=== PATIENT | female | born 1975 | race Hispanic/Latino ===

== ENCOUNTER 2018-07-30 15:04 | Emergency (ER) | payer SELFPAY ==
[2018-07-30 15:18] VITALS: BP 125/89
[2018-07-30 18:15] LABS: Basophils % (Auto) 0.5 % (0.0-1.8); Eosinophils % (Auto) 0.6 % (0.0-4.3); Hematocrit 46.9 % (30.3-42.9); Hemoglobin 15.7 gm/dl (10.1-14.3); Lymphocytes # (Auto) 1.7 K/mm3 (1.2-5.4); Lymphocytes % (Auto) 20.5 % (13.4-35.0); Mean Corpuscular HGB Conc 33 % (30-34); Mean Corpuscular Volume 97 fl (79-97); Monocytes # (Auto) 0.6 K/mm3 (0.0-0.8); Monocytes % (Auto) 7.8 % (0.0-7.3); Platelet Count 252 K/mm3 (140-440); Red Blood Count 4.83 M/mm3 (3.65-5.03); Red Cell Distribution Width 13.7 % (13.2-15.2)
[2018-07-30 18:34] LABS: Alanine Aminotransferase 140 units/L (7-56); Albumin 4.4 g/dL (3.9-5); BUN/Creatinine Ratio 10; Blood Urea Nitrogen 6 mg/dL (7-17); Calcium 9.3 mg/dL (8.4-10.2); Hemolysis Index 2
[2018-07-30 19:33] LABS: HCG Qualitative,Urine Negative (Negative)
[2018-07-30 19:36] LABS: Color,Urine Yellow (Yellow)
[2018-07-30 19:37] LABS: Bacteria,Urine 1+ /HPF (Negative); Bilirubin,Urine NEG (Negative); Blood,Urine NEG (Negative); Protein,Urine <15 mg/dL mg/dL (Negative); Urobilinogen,Urine < 2.0 mg/dL (<2.0)
[2018-07-30] MEDS ORDERED: ULTRAM PO ONE (21:13)
[2018-07-30] MEDS ORDERED: ULTRAM ONE (21:14)
--- NOTE | 2018-07-30 21:45 | XRay Report ---
FINAL REPORT PROCEDURE: XR CHEST ROUTINE 2V TECHNIQUE: PA and lateral chest radiographs were obtained. CPT 23527 HISTORY: chest pain COMPARISON: No prior studies are available for comparison. FINDINGS: Heart: Normal. Mediastinum/Vessels: Normal. Lungs/Pleural space: Normal. Bony thorax: No acute osseous abnormality. Other: IMPRESSION: Normal examination.
[2018-07-30] MEDS ORDERED: ZOFRAN ODT PO STA (22:44)
--- NOTE | 2018-07-31 00:08 | Ultrasound Report ---
FINAL REPORT PROCEDURE: US ABDOMEN LIMITED TECHNIQUE: Real-time sonography in multiple planes of the gallbladder fossa and CBD with imaging of the adjacent liver, pancreas, and right kidney was performed with image documentation. CPT 03052 HISTORY: ruq pain COMPARISON: No prior studies are available for comparison. FINDINGS: Liver: Normal size and echotexture with no evidence of cystic or solid mass lesion. Gallbladder: There are gallstones. There is no gallbladder wall thickening or pericholecystic fluid. Intrahepatic bile ducts: Normal . Extrahepatic bile ducts: Common bile duct is dilated at 11 millimeters.. Pancreas: Normal as visualized with suboptimal depiction of the pancreatic tail. Right kidney: Normal echotexture. No focal renal mass, calculus, or hydronephrosis. Other: There is a mass inferior to the left lobe of the liver measuring 5.8 x 4.8 x 8.4 centimeters. Malignancy cannot be excluded. Correlation with CT suggested.. IMPRESSION: There is cholelithiasis without evidence of cholecystitis. The common bile duct is dilated. There is a mass inferior to the left lobe of the liver measuring 5.8 x 4.8 x 8.4 centimeters. Maligna ncy cannot be excluded. Correlation with CT suggested.
--- NOTE | 2018-07-31 01:33 | Emergency Department Report ---
ED Abdominal Pain HPI - General Chief Complaint: Chest Pain Stated Complaint: CHEST PAIN/LFT ARM TINGLE Time Seen by Provider: 07/30/18 17:54 Source: patient Mode of arrival: Ambulatory Limitations: No Limitations - History of Present Illness MD Complaint: abdominal pain - Related Data Previous Rx's Medication Instructions Recorded Last Taken Type Dicyclomine [Bentyl] 20 mg PO QID #20 tablet 07/31/18 Unknown Rx Ketorolac [Toradol] 10 mg PO Q6H PRN #15 tablet 07/31/18 Unknown Rx Ondansetron [Zofran ODT TAB] 8 mg PO Q12HR #14 tab.rapdis 07/31/18 Unknown Rx Allergies Allergy/AdvReac Type Severity Reaction Status Date / Time No Known Allergies Allergy Verified 07/30/18 15:13 ED Review of Systems ROS: Stated complaint: CHEST PAIN/LFT ARM TINGLE Other details as noted in HPI ED Past Medical Hx - Past Medical History Previous Medical History?: No - Surgical History Past Surgical History?: Yes Additional Surgical History: tubal ligation, lymph node removal, cervical biopsy - Social History Smoking Status: Never Smoker Substance Use Type: None - Medications Home Medications: Home Medications Medication Instructions Recorded Confirmed Last Taken Type Dicyclomine [Bentyl] 20 mg PO QID #20 tablet 07/31/18 Unknown Rx Ketorolac [Toradol] 10 mg PO Q6H PRN #15 tablet 07/31/18 Unknown Rx Ondansetron [Zofran ODT TAB] 8 mg PO Q12HR #14 tab.rapdis 07/31/18 Unknown Rx ED Physical Exam - General Limitations: No Limitations General appearance: alert, in no apparent distress - Head Head exam: Present: atraumatic, normocephalic - Eye Eye exam: Present: normal appearance - ENT ENT exam: Present: mucous membranes moist - Neck Neck exam: Present: normal inspection - Respiratory Respiratory exam: Present: normal lung sounds bilaterally. Absent: respiratory distress - Cardiovascular Cardiovascular Exam: Present: regular rate, normal rhythm. Absent: systolic murmur, diastolic murmur, rubs, gallop - GI/Abdominal GI/Abdominal exam: Present: soft, tenderness (right upper quadrant and epiga stric region), normal bowel sounds, other (inside, Pegu[place] Mauricio, no Rovsing). Absent: organomegaly, mass, bruit - Extremities Exam Extremities exam: Present: normal inspection - Back Exam Back exam: Present: normal inspection - Neurological Exam Neurological exam: Present: alert, oriented X3 - Psychiatric Psychiatric exam: Present: normal affect, normal mood - Skin Skin exam: Present: warm, dry, intact, normal color. Absent: rash ED Course Vital Signs 07/30/18 07/30/18 15:13 17:03 Temperature 97.9 F Pulse Rate 85 Respiratory 18 16 Rate Blood Pressure 125/89 O2 Sat by Pulse 98 Oximetry ED Medical Decision Making - Lab Data Result diagrams: 07/30/18 18:02 07/30/18 18:02 - Medical Decision Making Return to the emergency department. develop any fever, vomiting blood, bloody diarrhea, severe worsening abdominal pain, inability to tolerate meals Ms. Shaw is aware of her previous gallbladder history. States that she may need to have something done about it, but it has been controlled for the last few months. Critical care attestation.: If time is entered above; I have spent that time in minutes in the direct care of this critically ill patient, excluding procedure time. ED Disposition Clinical Impression: Cholelithiasis, Abdominal pain, Elevated liver enzymes Disposition: [id number] TO HOME OR SELFCARE Is pt being admited?: No Does the pt Need Aspirin: No Condition: Stable Instructions: Cholecystitis (ED), Acute Nausea and Vomiting (ED), Magnetic Resonance Cholangiopancreatography (ED) Referrals: [facility] [Provider Group] - 3-5 Days [facility] [Provider Group] - 3-5 Days (Please follow up with gastroenterology for further evaluation of your gallbladder disease. It is likely that she would need an ERCP to further evaluate her gallbladder function. Also, they will evaluate the her elevated liver enzymes which may be secondary to this gallbladder disease process as well.)
[2018-07-31] MEDS ORDERED: ULTRAM PO ONE (01:48)
== END 2018-07-31 02:07 | disposition home or self-care (01) ==
LOC: ED 15:04
DX: K80.20 Calculus of gallbladder without cholecystitis without obstruction (principal); Z98.51 Tubal ligation status
CPT/HCPCS: 36415; 71046; 76705; 80053; 81001; 81025; 83690; 85025; 93005; 93010; 99284; Q0162